=== PATIENT | female | born 1970 | race Caucasian/White ===

== ENCOUNTER 2018-08-16 14:07 | Day surgery (SDC) | payer OTHER ==
[2018-08-16] MEDS ORDERED: LIDOCAINE 4% SOLUTION 50 ML BTL (14:47)
[2018-08-16] MEDS ORDERED: FENTAnyl 50 MCG/ML VIAL (15:23)
[2018-08-16] MEDS ORDERED: MIDAZOLAM 1 MG/ML 2 ML INJ ×2 (15:23)
== END 2018-08-16 15:33 | disposition home or self-care (01) ==
LOC: GIL 14:07
DX: K44.9 Diaphragmatic hernia without obstruction or gangrene (principal)
CPT/HCPCS: 43239; 84703; 88305; 88312